=== PATIENT | female | born 1975 | race Caucasian/White ===

== ENCOUNTER 2020-02-21 21:41 | Emergency (ER) | payer BC ==
[~2020-02-21] VITALS: Ht 162.6 cm; Wt 104.3 kg
[~2020-02-21 21:41] MED LIST: ACET1TAB43 PO; BUSP10TA95 PO; FLUO20CA42 PO; FLUO20CA46; HYDR-3870 PO; IBP600T1 PO; LEVO750T39; LORA10TA72 PO; MONT10TA97; PRD10T; PREN1TAB71 PO; RT-ALBUINH; TRM50T PO
[2020-02-21 22:07] VITALS: BP 144/87
--- NOTE | 2020-02-21 22:34 | ED Lower Extremity ---
General Chief Complaint: Lower Extremity Stated Complaint: R ANKLE INJ Nursing Triage Note: PT TO ROOM FT1 VIA W/C WITH C/O RIGHT ANKLE INJURY AND PAIN AFTER "SLIPPING" DOWN SOME STAIRS. PT REPORTS SHE HEARD SOMETHING "SNAP". Nursing Sepsis Screen: No Definite Risk Source: patient Exam Limitations: no limitations History of Present Illness Date Seen by Provider: Feb 21, 2020 Time Seen by Provider: 22:14 Initial Comments 2 hours prior to arrival patient remarks that she was walking down basement stairs and slipped on a toy feeling a popping sensation in her right ankle and rotated it medially. She was not able to bear any weight on it immediately. She is not able to bear weight on it now. She put ice wrapped with Humberto wrap and took ibuprofen and her pain is significantly improved. Initially the pain was so bad she vomited once. She is not having any nausea now. She denies striking her head or anywhere else. No pain elsewhere. Not on blood thinners. No history of broken bones. Allergies and Home Medications Allergies Coded Allergies: No Known Drug Allergies (Unverified , 01/16/13) Home Medications Hydrocodone/Acetaminophen 1 Each Tablet, 1-2 EACH PO Q4H PRN for PAIN Prescribed by: KAYLYN MESA on 07/16/15 2311 Hydrocodone/Acetaminophen 1 Each Tablet, 1 EACH PO Q6H PRN for PAIN-BREAKTHROUGH Prescribed by: LA DUKES on 02/21/20 2352 Patient Home Medication List Home Medication List Reviewed: Yes Review of Systems Constitutional: No chills, No diaphoresis EENTM: No ear discharge, No ear pain Respiratory: No cough, No short of breath Cardiovascular: No Hx of Intervention, No palpitations All Other Systems Reviewed Negative Unless Noted: Yes Past Vctywcx-Afpxbm-Kjunhz Hx Patient Social History Alcohol Use: Occasionally Uses Recreational Drug Use: No Smoking Status: Never a Smoker 2nd Hand Smoke Exposure: No Recent Foreign Travel: No Contact w/Someone Who Travel: No Recent Infectious Disease Expo: No Recent Hopitalizations: No Physical Abuse: No Sexual Abuse: No Mistreated: No Fear: No Immunizations Up To Date Tetanus Booster (TDap): Less than 5yrs PED Vaccines UTD: No Date of Influenza Vaccine: Nov 19, 2014 Seasonal Allergies Seasonal Allergies: No Past Medical History Surgeries: Yes (shoulder surgery, D & C, Gallbladder) Respiratory: No Cardiac: No Neurological: No Reproductive Disorders: No Female Reproductive Disorders: Denies Sexually Transmitted Disease: No HIV/AIDS: No Gastrointestinal: No Musculoskeletal: No Endocrine: No Cancer: No Psychosocial: Yes Bipolar, Depression Integumentary: No Blood Disorders: No Adverse Reaction/Blood Tranf: No Family Medical History Family history: Arthritis 03 FATHER Family history: Diabetes mellitus 03 MOTHER (type 2) Family history: Gastrointestinal disease 09 BROTHER (celic disease) No Family History of: Abdominal aortic aneurysm Pinola's disease Alcoholism Aphasia Cancer Cancer of colon Cataract Chest pain Congenital heart disease Congestive heart failure Cystic fibrosis Dementia Dysphagia Family history: Allergy Family history: Alzheimer's disease Family history: Asthma Family history: Breast disease Family history: Cardiovascular disease Family history: Coronary thrombosis Family history: Glaucoma Family history: Hypertension Family history: Osteoporosis Family history: Thyroid disorder Headache Hearing loss Heart disease Hereditary disease History of - anemia History of - disorder History of - respiratory disease History of drug abuse Human immunodeficiency virus (HIV) seropositivity Hypercholesterolemia Infertile Kidney disease Malignant neoplasm of lung Myocardial infarction Parkinson's disease Prostate cancer Psychotic disorder Seizure disorder Stroke Tuberculosis Visual impairment Physical Exam Vital Signs Vital Signs - First Documented 02/21/20 22:07 Temp 36.7 Pulse 91 Resp 20 B/P (MAP) 144/87 (106) O2 Delivery Room Air Capillary Refill : Less Than 3 Seconds Height, Weight, BMI Height: 5'4" Weight: 240lbs. oz. [id number]; 39.00 BMI Method:Stated General Appearance: WD/WN, mild distress HEENT: PERRL/EOMI, pharynx normal Neck: full range of motion, normal inspection Cardiovascular: normal peripheral pulses, regular rate, rhythm Respiratory: no respiratory distress, no accessory muscle use Knees: bilateral knee non-tender, bilateral knee normal inspection, bilateral knee normal range of motion, bilateral knee no evidence of injury Ankles: left ankle non-tender, left ankle normal inspection, left ankle normal range of motion, left ankle no evidence of injury; right ankle limited range of motion (Difficult due to pain), right ankle pain (Lateral and medial malleoli posterior tender to palpation), right ankle soft tissue tenderness, right ankle swelling (Mild) Feet: bilateral foot non-tender, bilateral foot normal inspection, bilateral foot normal range of motion, bilateral foot no evidence of injury, bilateral foot other (Sensation intact full range of motion of toes.) Neurologic/Tendon: normal sensation, normal motor functions, responds to pain, no evidence tendon injury Neurologic/Psychiatric: alert, normal mood/affect, oriented x 3 Skin: normal color, warm/dry Progress/Results/Core Measures Results/Orders My Orders Orders - LA DUKES Ankle, Right, 3 Views (02/21/20 22:31) Vital Signs/I&O 02/21/20 22:07 Temp 36.7 Pulse 91 Resp 20 B/P (MAP) 144/87 (106) O2 Delivery Room Air Blood Pressure Mean: 106 Progress Progress Note : Time: 22:33 Progress Note 3 view right ankle continue ice. She says her pain is tolerable now. Diagnostic Imaging Diagonstic Imaging: Xray Plain Films/CT/US/NM/MRI: ankle (Right) Comments Some questionable lucency on the head of the fibula but no definitive fracture. Suspect occult fracture versus sprain strain Reviewed: Reviewed by Me Departure Impression Primary Impression: Occult fibular fracture Additional Impression: Right ankle sprain Qualified Codes: S93.401A - Sprain of unspecified ligament of right ankle, initial encounter Disposition: HOME, SELF-CARE Condition: Stable Departure-Patient Inst. Decision time for Depature: 23:45 Referrals: JOSFEINA PRESLEY DO (PCP/Family) Primary Care Physician RAMON STEVENS MD Patient Instructions: Ankle Fracture (DC) Add. Discharge Instructions: I cannot see a definitive fracture on the x-ray but I suspect there may be an occult fracture. Wear the boot for the next week or 2. Weightbearing as tolerated. Crutches as necessary for the next week. Ice, Tylenol and ibuprofen as necessary. Follow-up with either your primary care doctor or Dr. Stevens, orthopedic surgeon in 7 to 10 days for reexamination. Elevate your ankle above the level of your heart as necessary for pain and swelling. All discharge instructions reviewed with patient and/or family. Voiced understanding. Scripts Hydrocodone/Acetaminophen (Hydrocodone-Acetamin 5-325 mg) 1 Each Tablet 1 EACH PO Q6H PRN for PAIN-BREAKTHROUGH, #8 TAB 0 Refills Prov: LA DUKES 02/21/20 Copy Copies To 1: RAMON STEVENS MD, TITUS J Feb 21, 2020 22:34
[2020-02-21] MEDS ORDERED: ACHD5005 PO (23:52)
[2020-02-22] MEDS ORDERED: RX-HYDROCODONE/APAP 5/325 MG #4 TAB PK PO PRN
--- NOTE | 2020-02-22 07:02 | Diagnostic Imaging Report ---
EXAM: Right ankle at 11:18 PM INDICATION: Pain 3 views were obtained. COMPARISON: There are no prior studies available for comparison. FINDINGS: The bony alignment is normal. The plafond and talar dome are intact. The ankle mortise is symmetric. There is no acute fracture or dislocation. IMPRESSION: No focal abnormality of the right ankle. Dictated by: Dictated on workstation # [id number]
== END 2020-02-22 | disposition home or self-care (01) ==
LOC: EDUNIT# 21:41 → ER 21:44
DX: S82.491A Other fracture of shaft of right fibula, initial encounter for closed fracture (principal); S93.491A Sprain of other ligament of right ankle, initial encounter; Z82.61 Family history of arthritis; Z83.3 Family history of diabetes mellitus; W10.8XXA Fall (on) (from) other stairs and steps, initial encounter
CPT/HCPCS: 73610; 99282; L2114

== ENCOUNTER 2022-12-13 05:32 | Outpatient (CLI) | payer BC ==
[~2022-12-13] VITALS: Ht 162.6 cm; Wt 116.0 kg
[~2022-12-13 05:32] MED LIST changes: -BUPR150T28 PO; -ERGO1250 PO
[2022-12-13] MEDS ORDERED: ERGO1250 PO (15:14)
[2022-12-13] MEDS ORDERED: BUPR150T28 PO (15:14)
== END 2022-12-13 15:47 | disposition home or self-care (01) ==
LOC: PREOP 05:32
PROVIDERS: ATTEND Surgery
DX: Z01.818 Encounter for other preprocedural examination (principal)

== ENCOUNTER → 2022-12-13 | Outpatient (CLI) | payer BC ==
[~2022-12-13] MED LIST changes: +ACHD5005 PO; +BUPR150T28 PO; +ERGO1250 PO; -FLUO20CA46; +FLUO20CA48; +LEVO750T; -LEVO750T39; +MONT-40; -MONT10TA97
--- NOTE | 2022-12-13 11:58 | Diagnostic Imaging Report ---
INDICATION: Right axillary mass and swelling. Sonographic interrogation of the area of swelling right axilla was performed. No sonographic abnormality is identified. No solid or cystic mass is identified. No fluid collection is detected. IMPRESSION: No sonographic abnormality is detected. Dictated by: Dictated on workstation # [id number]
== END ==
LOC: RAD 09:57
PROVIDERS: ATTEND Surgery
DX: R22.31 Localized swelling, mass and lump, right upper limb (principal)
CPT/HCPCS: 76881

== ENCOUNTER 2023-01-09 08:39 | Day surgery (SDC) | payer BC ==
[~2023-01-09] VITALS: Ht 162.6 cm; Wt 116.0 kg
[~2023-01-09 08:39] MED LIST changes: +BUPR150T28 PO; +ERGO1250 PO
[2023-01-09] MEDS ORDERED: LACTATED RINGERS 1,000 ML 1,000 ML IV STA (08:47)
[2023-01-09 08:55] VITALS: BP 137/77
--- NOTE | 2023-01-09 09:48 | Progress Note-Post Operative ---
Post-Operative Progess Note Surgeon (s)/Backrest Assembler (s) Surgeon ABHISHEK KHOURY DO Backrest Assembler: n/a Pre-Operative Diagnosis change in bowel habits, family history colon cancer Post-Operative Diagnosis cecal polyps x2 Procedure & Operative Findings Date of Procedure 01/09/23 Procedure Performed/Findings colonoscopy with hot biospy polypectomy x2 Anesthesia Type per TUNNELLER Estimated Blood Loss Estimated blood loss (mL): none Specimens/Packing Specimens Removed cecal polyp x2 ABHISHEK KHOURY DO Jan 09, 2023 09:48
--- NOTE | 2023-01-09 09:49 | Discharge Inst-Simple/Standard ---
Discharge Inst-Standard Patient Instructions/Follow Up Plan of Care/Instructions/FU: 2 weeks cortez Activity as Tolerated: Yes Discharge Diet: Regular Diet ABHISHEK KHOURY DO Jan 09, 2023 09:48
[2023-01-09 09:53] VITALS: BP 116/58
[2023-01-09 10:00] VITALS: BP 121/58
[2023-01-09 10:20] VITALS: BP 121/58
--- NOTE | 2023-01-09 13:26 | Anesthesia-General Post-Op ---
MAC Patient Condition Mental Status/LOC: Same as Preop Cardiovascular: Satisfactory Nausea/Vomiting: Absent Respiratory: Satisfactory Pain: Controlled Complications: Absent Post Op Complications Complications None Follow Up Care/Instructions Patient Instructions None needed. Anesthesiology Discharge Order Discharge Order Patient is doing well, no complaints, stable vital signs, no apparent adverse anesthesia problems. No complications reported per nursing. KIMBERLY ANTONIO CRNA Jan 09, 2023 13:25
--- NOTE | 2023-01-09 15:12 | OPERATIVE REPORT ---
DATE OF SERVICE: 01/09/2023 PREOPERATIVE DIAGNOSIS: Family history of colon cancer. POSTOPERATIVE DIAGNOSIS: Cecal polyps x2. PROCEDURE: Colonoscopy with hot biopsy polypectomy x2. SURGEON: Abhishek Esquivel DO ANESTHESIA: Per SPREAD CUTTER. ESTIMATED BLOOD LOSS: None. COMPLICATIONS: None. INDICATIONS: The patient is a 47-year-old female with family history of colon cancer. She understands risks and benefits of procedure and wished to proceed. Consent was signed in chart. DESCRIPTION OF PROCEDURE: The patient was taken to endoscopy suite, placed in left lateral recumbent position. Timeout was performed. Digital rectal exam was performed. No palpable polyps, masses or ulcerations. Scope was inserted in the rectum, advanced all the way to the cecum with minimal difficulty. Prep was adequate. Scope was slowly retracted back. Two polyps in the cecum, which hot biopsy polypectomy was performed. Scope was then continuously retracted back. No polyps, masses or ulcerations in the cecum other than the 2. No other polyps, masses or ulcerations within the cecum, ascending, transverse, descending and sigmoid colon. Once in the rectum, scope was retroflexed noting no other pathology. Scope was returned to its normal position, slowly withdrawn until completely removed. The patient tolerated the procedure well without any complications, taken to recovery room in stable condition. RECOMMENDATIONS: The patient will need repeat colonoscopy in 5 years due to family history of colon cancer and also due to polyps. The patient will follow up on pathology in a couple of weeks. Any issues before that, be seen at that time. Job ID: [id number] DocumentID: [id number] Dictated Date: 01/09/2023 09:48:32 Service Agent Date: 01/09/2023 15:10:00 Dictated By: ABHISHEK ESQUIVEL DO
== END 2023-01-09 10:20 | disposition home or self-care (01) ==
LOC: ENDO 08:39
PROVIDERS: ATTEND Surgery
DX: Z12.11 Encounter for screening for malignant neoplasm of colon (principal); K63.5 Polyp of colon; Z80.0 Family history of malignant neoplasm of digestive organs
CPT/HCPCS: 45384; 84703; G0416; 88305